=== PATIENT | female | born 1945 | race Caucasian/White ===

== ENCOUNTER 2018-12-24 14:11 | Inpatient (IN) | payer MEDICARE, OTHER ==
[~2018-12-24] VITALS: Ht 160 cm; Wt 82.5 kg
[~2018-12-24 14:11] MED LIST: DICL100G37 TOP; GABA100C14 PO; OXYB10TA6 PO; PANT40TA3 PO
[2018-12-24] MEDS ORDERED: ALBUTEROL/IPRATROPIUM (NEB) 3 ML AMP HHN PRN (19:00)
[2018-12-24] MEDS ORDERED: hydrALAzine 20 MG INJ IV PRN (19:00)
[2018-12-24] MEDS ORDERED: LORAZEPAM 2 MG INJ IV PRN (19:00)
[2018-12-24] MEDS ORDERED: LEVOFLOXACIN 750MG/D5W (PMX) 150 ML IVPB SCH (19:00)
[2018-12-24] MEDS ORDERED: NACL 0.9% 3 ML SYG IV SCH (19:00)
[2018-12-24] MEDS ORDERED: NITROGLYCERIN (SL) 0.4 MG TAB SL PRN (19:00)
[2018-12-24] MEDS ORDERED: ONDANSETRON 4 MG INJ IV PRN ×2 (19:00)
[2018-12-24] MEDS ORDERED: HYDROCODONE/APAP (5/325) TAB PO PRN (19:00)
[2018-12-24] MEDS ORDERED: ACETAMINOPHEN 325 MG TAB PO PRN ×2 (19:00)
[2018-12-24] MEDS ORDERED: morphine 2 MG INJ IV PRN (19:00)
[2018-12-24] MEDS ORDERED: MAGNESIUM HYDROXIDE 30ML CUP PO PRN (19:00)
[2018-12-24] MEDS ORDERED: DOCUSATE SODIUM 100 MG CAP PO PRN (19:00)
[2018-12-24] MEDS: LEVOFLOXACIN 750MG/D5W (PMX) 150 ML IVPB SCH (19:47)
[2018-12-24] MEDS ORDERED: IOHEXOL 300MG/ML 150 ML BTL ONE (22:32)
[2018-12-24] MEDS ORDERED: SOD CHLORIDE 0.9% 100 ML ONE (22:32)
[2018-12-24 23:00] VITALS: Ht 160 cm; Wt 82.5 kg
[2018-12-24 23:08] VITALS: BP 116/64; RESP 19
[2018-12-24] MEDS: SOD CHLORIDE 0.45% 1,000 ML IV SCH (23:12)
[2018-12-25 02:29] VITALS: BP 111/57; PULSE 79; RESP 19
[2018-12-25] MEDS: PANTOPRAZOLE 40 MG INJ IV SCH (05:20)
[2018-12-25 07:35] VITALS: BP 132/82; PULSE 88; RESP 18
[2018-12-25] MEDS: SOD CHLORIDE 0.45% 1,000 ML IV SCH ×2 (07:48→13:51)
[2018-12-25] MEDS: OXYBUTYNIN (XL) 5 MG TAB PO SCH (09:14)
[2018-12-25 14:18] VITALS: BP 139/67; PULSE 87; RESP 18
[2018-12-25] MEDS ORDERED: BISACODYL (EC) 5 MG TAB PO ONE (16:30)
[2018-12-25] MEDS ORDERED: POTASSIUM CHLORIDE (SR) 20 MEQ TAB PO STA (16:46)
[2018-12-25] MEDS ORDERED: MAGNESIUM CITRATE 300 ML BTL PO ONE (17:30)
[2018-12-25] MEDS ORDERED: POLYETHYLENE GLYCOL 3350 119 GM POWDER PO ONE (18:30)
[2018-12-25 19:48] VITALS: BP 135/72; PULSE 65; RESP 18
[2018-12-26 02:16] VITALS: BP 114/60; PULSE 68; RESP 16
[2018-12-26] MEDS: SOD CHLORIDE 0.45% 1,000 ML IV SCH (03:46)
[2018-12-26] MEDS ORDERED: POLYETHYLENE GLYCOL 3350 119 GM POWDER PO ONE (06:00)
[2018-12-26] MEDS: PANTOPRAZOLE 40 MG INJ IV SCH (06:00)
[2018-12-26 07:29] VITALS: BP 124/67; PULSE 77; RESP 18
[2018-12-26] MEDS: OXYBUTYNIN (XL) 5 MG TAB PO SCH (07:57)
[2018-12-26] MEDS ORDERED: BISACODYL (EC) 5 MG TAB PO ONE (08:00)
[2018-12-26 13:40] VITALS: BP 143/67; PULSE 83; RESP 16
[2018-12-26] MEDS ORDERED: ONDANSETRON 4 MG INJ IV PRN (14:00)
[2018-12-26] MEDS ORDERED: OXYCODONE/ACETAMINOPHEN (5/325) TAB PO PRN ×2 (14:00)
[2018-12-26] MEDS ORDERED: FENTAnyl 50 MCG/ML VIAL IV PRN ×3 (14:00)
[2018-12-26] MEDS ORDERED: PROPOFOL 40 ML ONE (14:55)
[2018-12-26 15:50] VITALS: BP 116/55; PULSE 77; RESP 18
[2018-12-26] MEDS: LEVOFLOXACIN 750MG/D5W (PMX) 150 ML IVPB SCH (18:27)
[2018-12-26 19:55] VITALS: BP 112/60; RESP 16
[2018-12-26 20:41] VITALS: BP 112/58; PULSE 86; RESP 18
[2018-12-27] MEDS: SOD CHLORIDE 0.45% 1,000 ML IV SCH ×2 (00:11→13:13)
[2018-12-27 02:48] VITALS: BP 126/61; PULSE 90; RESP 19
[2018-12-27] MEDS: PANTOPRAZOLE 40 MG INJ IV SCH (06:00)
[2018-12-27 07:54] VITALS: BP 114/56; PULSE 76; RESP 18
[2018-12-27] MEDS: OXYBUTYNIN (XL) 5 MG TAB PO SCH (08:59)
[2018-12-27 15:27] VITALS: BP 113/55; PULSE 73; RESP 18
[2018-12-27 19:22] VITALS: BP 104/58; PULSE 76; RESP 18
[2018-12-28 01:37] VITALS: BP 118/61; PULSE 80; RESP 18
[2018-12-28] MEDS: PANTOPRAZOLE 40 MG INJ IV SCH (06:00)
[2018-12-28 07:23] VITALS: BP 104/61; PULSE 71; RESP 18
[2018-12-28] MEDS ORDERED: BARIUM SULFATE 0.1% 450 ML BTL (VOLUMEN) PO ONE (07:41)
[2018-12-28] MEDS ORDERED: SOD CHLORIDE 0.9% 100 ML ONE (08:52)
[2018-12-28] MEDS ORDERED: IOHEXOL 100 ML ONE (08:52)
[2018-12-28] MEDS ORDERED: GLUCAGON 1 MG INJ ONE (09:29)
[2018-12-28] MEDS ORDERED: GLUCAGON 1 MG INJ IV STA (09:41)
[2018-12-28] MEDS: OXYBUTYNIN (XL) 5 MG TAB PO SCH (10:51)
[2018-12-28] MEDS ORDERED: LOPERAMIDE 2 MG CAP PO PRN (13:30)
[2018-12-28 15:53] VITALS: BP 129/60; PULSE 81; RESP 18
[2018-12-28 19:50] VITALS: BP 118/55; PULSE 69; RESP 16
[2018-12-29 02:42] VITALS: BP 127/57; PULSE 74; RESP 18
[2018-12-29] MEDS: PANTOPRAZOLE 40 MG INJ IV SCH (06:12)
[2018-12-29 07:45] VITALS: BP 131/58; PULSE 78; RESP 18
[2018-12-29 08:00] VITALS: BP 128/60; PULSE 80; RESP 18
[2018-12-29] MEDS: OXYBUTYNIN (XL) 5 MG TAB PO SCH (08:35)
[2018-12-29 15:03] VITALS: BP 127/60; PULSE 70; RESP 20
== END 2018-12-29 16:50 | disposition home or self-care (01) | DRG 379 ==
LOC: E/R 14:11 → MS1 18:46 → SUATTDRO 22:09
PROVIDERS: ADMIT Hospitalist; ATTEND Internal Medicine
PROC: 0DB68ZX Excision of Stomach, Via Natural or Artificial Opening Endoscopic, Diagnostic (ICD-10-PCS; principal; 2018-12-26 13:30)
PROC: 0DJD8ZZ Inspection of Lower Intestinal Tract, Via Natural or Artificial Opening Endoscopic (ICD-10-PCS; 2018-12-26 13:30)
DX: K62.5 Hemorrhage of anus and rectum (principal); D64.9 Anemia, unspecified; C50.911 Malignant neoplasm of unspecified site of right female breast; E87.6 Hypokalemia; K29.40 Chronic atrophic gastritis without bleeding; K64.8 Other hemorrhoids; K64.4 Residual hemorrhoidal skin tags; K52.9 Noninfective gastroenteritis and colitis, unspecified
CPT/HCPCS: 74177; 80048; 80053; 80061; 81001; 82270; 83036; 83735; 84100; 84439; 84443; 84484; 85025; 85610; 85730; 86850; 86900; 86901; 87086; 88305; 88312; 93005; 93306; C9113; J1610; J1956; Q9967